=== PATIENT | male | born 1965 | race African-American/Black ===

== ENCOUNTER → 2017-01-13 | Outpatient (CLI) | payer OTHER ==
--- NOTE | 2017-01-13 13:34 | PCVCIMAG ---
APPROVED REPORT Study performed: 01/13/2017 09:32:29 EXAM: Comprehensive 2D, Doppler, and color-flow Echocardiogram Patient Location: Echo lab Status: routine Other Information Study Quality: Good Risk Factors: Cardiac Risk Factors: HTN Indications Dyspnea Tachycardia Fatigue Hypertension/HDD 2D Dimensions IVSd: 12.03 (7-11mm)LVOT Diam: 21.85 (18-24mm) LVDd: 44.98 mm PWd: 10.35 (7-11mm)Ascending Ao: 29.62 (22-36mm) LVDs: 25.27 (25-40mm) Left Atrium: 32.15 (27-40mm) Aortic Root: 27.95 mm LV Single Plane 4CH: 56.81 % LV Single Plane 2CH: 54.88 %Tirado's LVEF: 55.85 % Biplane EF: 55.4 % Volumes Left Atrial Volume (Systole) Single Plane 4CH: 45.99 mLSingle Plane 2CH: 78.58 mL LA ESV Index: 28.00 mL/m2 Aortic Valve AoV Peak Vikas.: 1.67 m/s AO Peak Gr.: 11.11 mmHgLVOT Max P.98 mmHg LVOT Max V: 1.22 m/s JOHN Vmax: 2.74 cm2 Mitral Valve E/A Ratio: 0.8 MV Decel. Time: 74.83 ms MV E Max Vikas.: 0.81 m/s MV A Vikas.: 1.03 m/s IVRT: 44.98 ms TDI E/Lateral E': 13.50E/Medial E': 9.00 Medial E' Vikas.: 0.09 m/s Lateral E' Vikas.: 0.06 m/s Pulmonary Valve PV Peak Vikas.: 1.21 m/sPV Peak Gr.: 5.83 mmHg Pulmonary Vein P Vein S: 0.55 m/sP Vein A: 0.28 m/s P Vein D: 0.43 m/sP Vein A Dur.: 76.1 msec P Vein S/D Ratio: 1.28 Tricuspid Valve TR Peak Vikas.: 2.73 m/s TR Peak Gr.: 29.81 mmHg TV Vmax: 1.05 m/sPA Pressure: 37.00 mmHg Left Ventricle The left ventricle is normal size. There is normal LV segmental wall motion. Mild concentric left ventricular hypertrophy. There is no ventricular septal defect visualized. Left ventricular systolic function is normal. The left ventricular ejection fraction is within the normal range. LVEF is 55%. Mild diastolic dysfunction is present (impaired relaxation pattern). Right Ventricle The right ventricle is normal size. The right ventricular systolic function is normal. Atria The left atrium size is normal. The right atrium size is normal. Aortic Valve The aortic valve is normal in structure. No aortic regurgitation is present. There is no aortic valvular stenosis. Mitral Valve The mitral valve is normal in structure. There is no mitral valve regurgitation noted. No evidence of mitral valve stenosis. Tricuspid Valve The tricuspid valve is normal in structure. Mild tricuspid regurgitation with a PA pressureof 37mmHg. Pulmonic Valve The pulmonary valve is normal in structure. There is no pulmonic valvular regurgitation. Great Vessels The aortic root is normal in size. The ascending aorta is normal in size. IVC is normal in size and collapses with >50% inspiration The pulmonary artery is normal. Pericardium There is no pericardial effusion. There is no pleural effusion. <Conclusion> LVEF is 55%. Mild concentric left ventricular hypertrophy. The left ventricle is normal size. The left atrium size is normal. The right atrium size is normal. There is no aortic valvular stenosis. There is no mitral valve regurgitation noted. No evidence of mitral valve stenosis. There is no pericardial effusion. The aortic root is normal in size.
== END | disposition home or self-care (01) ==
LOC: PCVCIMAG 10:31
PROVIDERS: ATTEND Internal Medicine Cardiovascular Disease
DX: I07.1 Rheumatic tricuspid insufficiency (principal); I10 Essential (primary) hypertension; I25.10 Atherosclerotic heart disease of native coronary artery without angina pectoris; R00.0 Tachycardia, unspecified; Z88.0 Allergy status to penicillin; Z88.1 Allergy status to other antibiotic agents; Z88.2 Allergy status to sulfonamides
CPT/HCPCS: 93005; 93306; G0463

== ENCOUNTER → 2017-04-12 | Outpatient (CLI) | payer OTHER ==
[~2017-04-12] MED LIST: GADOBUTROL 10 MMOL/10 ML VIAL IV ONE; LISI-334 PO; PRED2.5T PO
--- NOTE | 2017-04-12 09:39 | KCIC ---
MRI Brain with and without contrast History: Fatigue, weight loss, malaise, headaches for years Technique: Multiplanar, multi sequential pre and postcontrast MR imaging was performed of the brain, dedicated images of the pituitary gland also acquired. Contrast: 9 cc Gadavist Comparison: None Findings: There is some motion degradation most notable for dedicated pituitary images. Size of the pituitary gland is within normal limits, no discrete focus of decreased enhancement identified. Infundibulum is in the midline. There is no evidence of recent infarct or cytotoxic edema. The ventricles, sulci, and cisterns are within normal limits in size and configuration. There is no significant midline shift, intraaxial mass effect, or focal abnormal extra-axial fluid collection. There is no significant signal abnormality of the brain parenchyma. There is no nodular parenchymal or leptomeningeal enhancement. There is preservation of the major intracranial flow-voids at the skull base. The cerebellar tonsils are normal in location. There is no significant abnormality of the pineal gland or pituitary gland. There is inferior right maxillary sinus mucous retention cyst up to 1.9 cm. There is [id number] fluid and thickening right mastoid air cells, mild thickening on the left. There is preserved marrow signal of the clivus. Impression: 1. There is no significant intracranial abnormality. No significant abnormality is identified of the pituitary gland. 2. There is nonspecific fluid and thickening of the right mastoid air cells. Electronically signed by: Owen Hanna MD (04/12/2017 9:36 AM) [id number]
--- NOTE | 2017-04-12 10:13 | KCIC ---
THYROID ULTRASOUND History: Low TSH level, hyperthyroidism, weight loss. Comparison: None. Technique: Multiple grayscale and color Doppler images of the thyroid gland were obtained. Findings: Measurements length, AP, and transverse, respectively, unless otherwise stated. The right thyroid lobe measures 5.5 x 1.8 x 2.2 cm. The left thyroid lobe measures 4.8 x 1.4 x 2.6 cm. The isthmus measures 2 mm. The thyroid gland is heterogeneous. There is no discrete thyroid nodule. There is normal blood flow in the thyroid gland. ACR Thyroid Imaging, Reporting And Data System (TI-RADS): White Paper Of The ACR TI-RADS Committee. Journal of the [employer], volume 14, issue 5, pages 587-595 (November 2016). IMPRESSION: Thyromegaly. Electronically signed by: Martinez Jaffe MD (04/12/2017 10:10 AM) [id number]
== END | disposition home or self-care (01) ==
LOC: KCIC MRI 07:42
PROVIDERS: ATTEND Internal Medicine
DX: E05.90 Thyrotoxicosis, unspecified without thyrotoxic crisis or storm (principal); E01.0 Iodine-deficiency related diffuse (endemic) goiter; R51 Headache
CPT/HCPCS: 70553; 76536; A9585